=== PATIENT | male | born 1975 | race Two or more races ===

== ENCOUNTER 2017-04-10 12:08 | Emergency (ER) | payer MEDICAID ==
[~2017-04-10] VITALS: Ht 193 cm; Wt 100.2 kg
--- NOTE | 2017-04-10 12:33 | Emergency Room Report ---
History of Present Illness General Chief Complaint: Eye Problems Source: Patient Present Illness HPI 41-year-old male presents to the emergency department for swelling, erythema, mild tenderness to localized area just under the right eye near the right cheekbone. Patient denies changes in vision he denies itching sensation. Patient states onset the symptoms was 5 days ago and it appeared that he had 2 tiny pimples very close together patient states he did not manipulate them in any way. Patient states after watchful waiting x5 days the symptoms seem to be getting worse. He denies fevers, chills, or history of immunocompromise. Denies ill contacts or recent travel. Denies lesions/rashes elsewhere on the body. Denies new medications or body washes or creams. Denies swelling of the lips, tongue , throat or airway. Denies wheezing, or shortness of breath. Denies recent travel, recent illness or ill contacts. denies blisters, oral lesions, or sloughing of the skin. Denies CP, Palpitations, LOC, AMS, dizziness , Changes in Vision, Sensation, paresthesias, or a sudden severe headache. Allergies: Coded Allergies: No Known Allergies (Unverified , 11/02/15) Patient History Past Medical History: see triage record Past Surgical History: none Pertinent Family History: none Immunizations: UTD Reviewed Nursing Documentation: PMH: Agreed, PSxH: Agreed Nursing Documentation-PM Past Medical History: No Stated History Review of Systems All Other Systems: negative except mentioned in HPI Physical Exam Vital Signs Date Time Temp Pulse Resp B/P (MAP) Pulse Ox O2 Delivery O2 Flow Rate FiO2 04/10/17 12:15 97.5 61 14 147/97 99 Room Air Sp02 EP Interpretation: reviewed, normal General Appearance: no apparent distress, alert, GCS 15, non-toxic Head: normocephalic, atraumatic Eyes: bilateral eye normal inspection, bilateral eye PERRL, bilateral eye EOMI ENT: hearing grossly normal, normal pharynx, no angioedema, normal voice Neck: full range of motion, supple/symm/no masses Respiratory: chest non-tender, lungs clear, normal breath sounds, no wheezing, speaking full sentences Cardiovascular #1: regular rate, rhythm Musculoskeletal: back normal, gait/station normal, normal range of motion, non- tender Neurologic: alert, oriented x3, responsive, motor strength/tone normal, sensory intact, speech normal Psychiatric: judgement/insight normal, memory normal, mood/affect normal Skin: normal color, no rash, warm/dry, well hydrated, other - localized non- blanching erythema,swelling and tenderness 1cm diameter on the right cheekbone, no palpable fluctuance. Lymphatic: no adenopathy Medical Decision Making PA Attestation Dr. Gambino is my supervising Physician whom patient management has been discussed with. Diagnostic Impression: Primary Impression: Facial cellulitis ER Course 41-year-old male presents to the emergency department for swelling, erythema, mild tenderness to localized area just under the right eye near the right cheekbone. Patient denies changes in vision he denies itching sensation. Patient states onset the symptoms was 5 days ago and it appeared that he had 2 tiny pimples very close together patient states he did not manipulate them in any way. Patient states after watchful waiting x5 days the symptoms seem to be getting worse. He denies fevers, chills, or history of immunocompromise. Denies ill contacts or recent travel. Denies lesions/rashes elsewhere on the body. Denies new medications or body washes or creams. Denies swelling of the lips, tongue , throat or airway. Denies wheezing, or shortness of breath. Denies recent travel, recent illness or ill contacts. denies blisters, oral lesions, or sloughing of the skin. Denies CP, Palpitations, LOC, AMS, dizziness , Changes in Vision, Sensation, paresthesias, or a sudden severe headache. Ddx considered but are not limited to cellulitis, abscess, orbital cellulitis, fracture, d/L. Vital signs: are WNL, pt. is afebrile H&PE are most consistent with localized facial cellulitis ORDERS: none required at this time, the diagnosis is clinical ED INTERVENTIONS: None required at this time. d/w pt. conservative treatment with oral abx. follow up with PMD. Pt. given return precautions. DISCHARGE: At this time pt. is stable for d/c to home. Will provide printed patient care instructions, and any necessary prescriptions. Care plan and follow up instructions have been discussed with the patient prior to discharge. Last Vital Signs Date Time Temp Pulse Resp B/P (MAP) Pulse Ox O2 Delivery O2 Flow Rate FiO2 04/10/17 12:15 97.5 61 14 147/97 99 Room Air Disposition: HOME, SELF-CARE Condition: Stable Patient Instructions: Bone Marrow Aspiration and Bone Marrow Biopsy Additional Instructions: Take medications as directed. Follow up with a Primary Care Provider in 3-5 days, even if your symptoms have resolved. --Please review list of primary care clinics, if you do not already have a primary care provider Return sooner to ED if new symptoms occur, or current symptoms become worse. - Please note that this Emergency Department Report was dictated using wireWA[employer]modern greek studies professor technology software, occasionally this can lead to erroneous entry secondary to interpretation by the dictation equipment. Chelsie Shah Apr 10, 2017 12:33
[2017-04-10] MEDS ORDERED: IBUPROFEN400 MG ORAL (12:35)
[2017-04-10] MEDS ORDERED: CEPHALEXIN500 MG ORAL (12:35)
[2017-04-10] MEDS ORDERED: BACTRIM DS TAB1 EAC1 ORAL (12:35)
[2017-04-10 12:52] VITALS: BP 120/78
== END 2017-04-10 12:52 | disposition home or self-care (01) ==
LOC: EMR 12:30
DX: L03.211 Cellulitis of face (principal)
CPT/HCPCS: 99284

== ENCOUNTER 2018-12-04 11:21 | Emergency (ER) | payer MEDICAID ==
[~2018-12-04] VITALS: Ht 193 cm; Wt 102.1 kg
[~2018-12-04 11:21] MED LIST: BACTRIM DS TAB1 EAC1 ORAL; CEPHALEXIN500 MG ORAL; IBUPROFEN400 MG ORAL
[2018-12-04] MEDS ORDERED: MULTIVITAMINS1 EAC2 ORAL (11:31)
[2018-12-04] MEDS ORDERED: Aspirin Baby 81mg ORAL ONE (11:45)
[2018-12-04 11:55] VITALS: BP 141/97
--- NOTE | 2018-12-04 11:55 | NUR ---
ED Nurse Note: PT CAME AND STATED HAVING PAIN ON THE BACK AND CHEST WITH NUMBNESS ON R ARM SINCE MONDAY. PT. STATED HE WORKS OUT A LOT BUT IT STARTED BEFORE WE WENT TO THE GYM LAST MONDAY. PT ALSO COMPLAINS OF NECK PAIN AND PAIN ON THE RIGHT SHOULD. PT STATED HE MIGHT TORE UP HIS MUSCLE WHILE ON GYM. SEEN BY TRU. URINE AND BLOOD SENT TO THE LAB. PO MEDS GIVEN, IVF STARTED. VS WITHIN NORMAL LIMIT. WILL CONTINUE TO MONITOR.
[2018-12-04 12:17] LABS: BASOPHILS % (AUTO) 2.2 % (0.0-2.0); EOSINOPHILS % (AUTO) 1.5 % (0.0-3.0); HEMATOCRIT 50.7 % (42.0-52.0); HEMOGLOBIN 17.4 G/DL (14.2-18.0); LYMPHOCYTES % (AUTO) 35.6 % (20.0-45.0); MEAN CORPUSCULAR VOLUME 89 FL (80-99); MONOCYTES % (AUTO) 10.4 % (1.0-10.0); NEUTROPHILS % (AUTO) 50.3 % (45.0-75.0); PLATELET COUNT 270 K/UL (150-450); RED BLOOD COUNT 5.67 M/UL (4.70-6.10); RED CELL DISTRIBUTION WIDTH 11.3 % (11.6-14.8); WHITE BLOOD COUNT 4.6 K/UL (4.8-10.8)
--- NOTE | 2018-12-04 12:27 | Diagnostic Imaging Report ---
Indication: Dyspnea Comparison: None A single view chest radiograph was obtained. Findings: Cardiomediastinal appearance is within normal limits for age. The lungs are clear. Pulmonary vascularity is appropriate. The diaphragmatic contour is smooth and costophrenic angles are sharp. No pleural effusions are identified. There is a probable old rib fracture at the right lung base. The bones are unremarkable. Impression: No acute findings
[2018-12-04 12:30] VITALS: BP 153/84
[2018-12-04 12:30] LABS: ANION GAP 6 mmol/L (5-15); BLOOD UREA NITROGEN 21 mg/dL (7-18); CALCIUM 9.5 MG/DL (8.5-10.1); CARBON DIOXIDE 29 MMOL/L (21-32); CHLORIDE 105 MMOL/L (98-107); CREATININE 1.1 MG/DL (0.55-1.30); POTASSIUM 3.9 MMOL/L (3.5-5.1); SODIUM 140 MMOL/L (136-145)
[2018-12-04 12:47] LABS: ALANINE AMINOTRANSFERASE 36 U/L (12-78); ALBUMIN 4.3 G/DL (3.4-5.0); ALBUMIN/GLOBULIN RATIO 1.4 (1.0-2.7); ALKALINE PHOSPHATASE 49 U/L (46-116); ASPARTATE AMINO TRANSFERASE 19 U/L (15-37); BILIRUBIN,TOTAL 0.7 MG/DL (0.2-1.0); CKMB 0.9 NG/ML (0.0-3.6); CREATINE KINASE 139 U/L (26-308)
--- NOTE | 2018-12-04 12:56 | Emergency Room Report ---
History of Present Illness General Chief Complaint: Chest Pain Source: Patient Present Illness HPI This patient complains of upper back pain and pain shooting down the right arm. 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 He notes this for the past 3 days. He also has ongoing neck and back pain. He denies recent illness. He denies headache. He denies traumatic injury. He does do heavy weight lifting and workouts. He denies fever or chills. He states he also has ongoing right shoulder pain that is chronic. He states the pain did radiate into his chest and has been constant. He denies shortness of breath. He denies cough or congestion. He denies injecting drugs or steroids. He has no other complaints. Allergies: Coded Allergies: No Known Allergies (Unverified , 11/02/15) Patient History Past Medical History: none Social History: Reports: drug use - THC; Denies: smoking, alcohol use Reviewed Nursing Documentation: PMH: Agreed; PSxH: Agreed Nursing Documentation-PMH Past Medical History: No Stated History Review of Systems All Other Systems: negative except mentioned in HPI Physical Exam Vital Signs Date Time Temp Pulse Resp B/P (MAP) Pulse Ox O2 Delivery O2 Flow Rate FiO2 12/04/18 11:28 97.5 85 22 99 Room Air 12/04/18 11:55 141/97 Sp02 EP Interpretation: reviewed, normal General Appearance: no apparent distress, alert, GCS 15, non-toxic Head: normocephalic, atraumatic Eyes: bilateral eye normal inspection, bilateral eye PERRL ENT: hearing grossly normal, normal pharynx, no angioedema, normal voice Neck: full range of motion, supple/symm/no masses Respiratory: chest non-tender, lungs clear, normal breath sounds, speaking full sentences Cardiovascular #1: regular rate, rhythm, no edema Cardiovascular #2: 2+ carotid (R), 2+ carotid (L), 2+ radial (R), 2+ radial (L) , 2+ dorsalis pedis (R), 2+ dorsalis pedis (L) Gastrointestinal: normal bowel sounds, non tender, soft, non-distended, no guarding, no rebound Rectal: deferred Genitourinary: normal inspection, no CVA tenderness Musculoskeletal: back normal, gait/station normal, normal range of motion, non- tender, calf tenderness Neurologic: alert, oriented x3, responsive, motor strength/tone normal, sensory intact, speech normal Psychiatric: judgement/insight normal, memory normal, mood/affect normal, no suicidal/homicidal ideation Reflexes: 3+ bicep (R), 3+ bicep (L), 3+ tricep (R), 3+ tricep (L), 3+ knee (R) , 3+ knee (L) Skin: normal color, no rash, warm/dry, well hydrated Lymphatic: no adenopathy Medical Decision Making Diagnostic Impression: Primary Impression: Cervical radiculopathy at C5 Additional Impression: Rotator cuff arthropathy ER Course This patient has findings on exam consistent with cervical radiculopathy. Given the physical exam and history, and combination with the MRI of the cervical spine day, this is consistent with radiculopathy. Likely the patient also has some rotator cuff injury given pain in the anterior shoulder and with range of motion. There is no evidence of a neurologic emergency or other etiology. The patient's chest pain is secondary and primarily related to the musculoskeletal pain. The patient is low risk for acute coronary syndrome and workup is reassuring here in the emergency department. HEART score is very low risk. The patient was instructed that he will need a follow-up with orthopedics for both his cervical radiculopathy in addition to his likely rotator cuff impingement syndrome. The patient is given close return precautions and follow-up instructions. Laboratory Tests Test 12/04/18 11:49 White Blood Count 4.6 K/UL (4.8-10.8) L Red Blood Count 5.67 M/UL (4.70-6.10) Hemoglobin 17.4 G/DL (14.2-18.0) Hematocrit 50.7 % (42.0-52.0) Mean Corpuscular Volume 89 FL (80-99) Mean Corpuscular Hemoglobin 30.7 PG (27.0-31.0) Mean Corpuscular Hemoglobin Concent 34.3 G/DL (32.0-36.0) Red Cell Distribution Width 11.3 % (11.6-14.8) L Platelet Count 270 K/UL (150-450) Mean Platelet Volume 7.2 FL (6.5-10.1) Neutrophils (%) (Auto) 50.3 % (45.0-75.0) Lymphocytes (%) (Auto) 35.6 % (20.0-45.0) Monocytes (%) (Auto) 10.4 % (1.0-10.0) H Eosinophils (%) (Auto) 1.5 % (0.0-3.0) Basophils (%) (Auto) 2.2 % (0.0-2.0) H Sodium Level 140 MMOL/L (136-145) Potassium Level 3.9 MMOL/L (3.5-5.1) Chloride Level 105 MMOL/L (98-107) Carbon Dioxide Level 29 MMOL/L (21-32) Anion Gap 6 mmol/L (5-15) Blood Urea Nitrogen 21 mg/dL (7-18) H Creatinine 1.1 MG/DL (0.55-1.30) Estimate Glomerular Filtration Rate > 60 mL/min (>60) Glucose Level 109 MG/DL (74-106) H Calcium Level 9.5 MG/DL (8.5-10.1) Total Bilirubin 0.7 MG/DL (0.2-1.0) Aspartate Amino Transferase (AST) 19 U/L (15-37) Alanine Aminotransferase (ALT) 36 U/L (12-78) Alkaline Phosphatase 49 U/L (46-116) Total Creatine Kinase 139 U/L (26-308) Creatine Kinase MB 0.9 NG/ML (0.0-3.6) Creatine Kinase MB Relative Index 0.6 Troponin I 0.000 ng/mL (0.000-0.056) Total Protein 7.3 G/DL (6.4-8.2) Albumin 4.3 G/DL (3.4-5.0) Globulin 3.0 g/dL Albumin/Globulin Ratio 1.4 (1.0-2.7) Urine Opiates Screen Negative (NEGATIVE) Urine Barbiturates Screen Negative (NEGATIVE) Phencyclidine (PCP) Screen Negative (NEGATIVE) Urine Amphetamines Screen Negative (NEGATIVE) Urine Benzodiazepines Screen Negative (NEGATIVE) Urine Cocaine Screen Negative (NEGATIVE) Urine Marijuana (THC) Screen Positive (NEGATIVE) H EKG Diagnostic Results Rate: normal Rhythm: NSR ST Segments: no acute changes Rhythm Strip Diag. Results EP Interpretation: yes Rate: 60's Rhythm: NSR, no PVC's, no ectopy Chest X-Ray Diagnostic Results Chest X-Ray Diagnostic Results : Chest X-Ray Ordered: Yes # of Views/Limited/Complete: 1 View Indication: Chest Pain EP Interpretation: Yes Interpretation: no consolidation, no effusion, no pneumothorax, no acute cardiopulmonary disease Impression: No acute disease Electronically Signed by: Sakshi Paris DO CT/MRI/US Diagnostic Results CT/MRI/US Diagnostic Results : Imaging Test Ordered: MRI C-spine Impression Multilevel degenerative spondylosis involving the intervertebral disks and uncovertebral joints resulting in multilevel central spinal stenosis and neural foraminal stenosis, summarized as follows: C5-6 with moderate to severe central spinal stenosis and neural foraminal stenosis, right worse than left. C6-7 mild to moderate central spinal stenosis and neural foraminal stenosis. C4-5 mild to moderate right and mild left foraminal stenosis and mild central spinal stenosis. Last Vital Signs Date Time Temp Pulse Resp B/P (MAP) Pulse Ox O2 Delivery O2 Flow Rate FiO2 12/04/18 11:55 71 16 Room Air 12/04/18 11:55 97.5 141/97 98 Status: improved Disposition: HOME, SELF-CARE Condition: Improved Referrals: [facility],REFERR[facility] (PCP) Additional Instructions: Please follow-up with an certified medical coding specialist. Sakshi Paris DO December 04, 2018 12:56
--- NOTE | 2018-12-04 13:15 | NUR ---
ED Nurse Note: pt went down to ct with tech
--- NOTE | 2018-12-04 13:25 | NUR ---
ED Nurse Note: pt went back from ct with tech
--- NOTE | 2018-12-04 13:32 | Diagnostic Imaging Report ---
Indication: Right-sided weakness numbness Technique: Contiguous 5 mm thick transaxial imaging of the head obtained in a Siemens Sensation [address] scanner. Soft tissue and bone windows generated. Automatic Exposure Control was utilized. Total Dose length Product (DLP): 1404.[address] Dose Index Volume (CTDIvol): 70.38 mGy Comparison: none Findings: The size and configuration of the cortical sulci, basal cisterns, and ventricles are within normal limits for age. There is no mass effect, midline shift, or edema identified. There is no evidence of acute hemorrhage or abnormal intra-axial or extra-axial fluid collections. The bones and soft tissues are unremarkable. Impression: No mass effect, edema or acute bleed. The CT scanner at [facility] is accredited by the [employer] and the scans are performed using dose optimization techniques as appropriate to a performed exam including Automatic Exposure control.
--- NOTE | 2018-12-04 13:38 | NUR ---
ED Nurse Note: pt went to mri with tech
[2018-12-04] MEDS ORDERED: Ketorolac 60mg Inj IM ONE (13:45)
--- NOTE | 2018-12-04 14:25 | NUR ---
ED Nurse Note: pt went back from mri with tech
--- NOTE | 2018-12-04 14:42 | Diagnostic Imaging Report ---
Indication: 43-year-old male neck and shoulder pain. Numbness right arm Technique: MRI examination of the cervical spine was performed in a 1.5 Manisha magnet. Sequences obtained include sagittal and axial T1 and T2 fast spin echo, and sagittal STIR. Comparison: none Findings: Foramen magnum and C1-2 are unremarkable. C2-3 is unremarkable. C3-4 shows some degenerative disc disease with desiccation narrowing and mild endplate spur formation. There is no neural foraminal stenosis or central spinal canal stenosis. C4-5 shows mild degenerative disease. There is mild to moderate right foraminal stenosis, narrowing of the central canal and mild left foraminal stenosis. C5-6 demonstrates moderate degenerative disease with fatty endplate changes, circumferential osteophytes at the endplates and uncovertebral joints and desiccation narrowing of the disc. There is moderate central spinal stenosis and moderate to severe bilateral foraminal stenosis, right worse than left. C6-7 shows moderate degenerative disc disease with desiccation narrowing and endplate osteophyte formation and fatty endplate signal alteration. Mild to moderate bilateral foraminal stenosis and central spinal stenosis demonstrated. C7-T1 shows no definite central or neural foraminal stenosis. The disc appears normal. The spinal cord exhibits normal signal. There is no cord edema or evidence of myelomalacia. Spinal ligaments and extra spinal soft tissues are unremarkable. Alignment is normal. Other than the degenerative endplate signal alterations described at C5-6 and C6-7 bone marrow signal is essentially normal. There is no evidence of acute injury such as a fracture or bone marrow edema. IMPRESSION: Multilevel degenerative spondylosis involving the intervertebral disks and uncovertebral joints resulting in multilevel central spinal stenosis and neural foraminal stenosis, summarized as follows: C5-6 with moderate to severe central spinal stenosis and neural foraminal stenosis, right worse than left. C6-7 mild to moderate central spinal stenosis and neural foraminal stenosis. C4-5 mild to moderate right and mild left foraminal stenosis and mild central spinal stenosis.
[2018-12-04] MEDS ORDERED: LIDODERM700 M1 TOPIC (14:59)
[2018-12-04] MEDS ORDERED: TRAMADOL HCL50 MG ORAL (14:59)
[2018-12-04] MEDS ORDERED: CYCLOBENZAPRINE10 MG ORAL (14:59)
[2018-12-04 15:12] VITALS: BP 148/82
--- NOTE | 2018-12-04 15:12 | NUR ---
ER DISCHARGE NOTE: Patient is cleared to be discharged per ERMD, pt is aox4, on room air, with stable vital signs. pt was given dc and prescription instructions, pt was able to verbalize understanding, pt id band and iv site removed without complications. pt is able to ambulate with steady gait. pt took all belongings.
--- NOTE | 2018-12-05 20:24 | Cardiology Report ---
APPROVED REPORT EKG Measurement Heart [id number] Normal sinus rhythm Normal ECG
== END 2018-12-04 15:12 | disposition home or self-care (01) ==
LOC: EMR 12:40
DX: M54.12 Radiculopathy, cervical region (principal); M12.9 Arthropathy, unspecified; F12.90 Cannabis use, unspecified, uncomplicated; M47.9 Spondylosis, unspecified
CPT/HCPCS: 36415; 70450; 71045; 72141; 80053; 80307; 82550; 82553; 84484; 85025; 93005; 96360; 96372; 99284